=== PATIENT | male | born 1950 | race American Indian/Alaskan Native ===

== ENCOUNTER 2019-10-23 15:05 | Inpatient (IN) | payer MEDICARE, OTHER ==
[~2019-10-23] VITALS: Ht 193 cm; Wt 140.0 kg
--- NOTE | 2019-10-23 15:36 | NUR ---
pt walked back from triage to room 24 in overflow, he was cooperative and calm
[2019-10-23 15:53] LABS: CLARITY,URINE SLIGHTLY CLOUDY (Clear); COLOR,URINE YELLOW (Yellow); GLUCOSE, URINE NEGATIVE (Neg); KETONES,URINE NEGATIVE (Neg); LEUKOCYTE ESTERASE ,URINE NEGATIVE (Neg); NITRITES, URINE NEGATIVE (Neg); OCCULT BLOOD,URINE TRACE-INTACT (Neg); PH,URINE 6.5 (4.8-8.0); PROTEIN,URINE NEGATIVE (Neg); UROBILINOGEN,URINE >=8.0 E.U/dL (0.2-1.0)
[2019-10-23 15:56] LABS: URINE AMPHETAMINE SCREEN NEGATIVE (Neg); URINE BARBITUATE SCREEN NEGATIVE (Neg); URINE BENZODIAZEPINES SCREEN POSITIVE (Neg); URINE CANNABINOID SCREEN NEGATIVE (Neg); URINE COCAINE SCREEN NEGATIVE (Neg); URINE METHADONE SCREEN NEGATIVE (Neg); URINE OPIATE SCREEN NEGATIVE (Neg); URINE PHENCYCLIDINE SCREEN NEGATIVE (Neg)
[2019-10-23 15:58] LABS: UA COLLECTION TYPE CLN CATCH MIDSTREAM
[2019-10-23 15:59] LABS: MUCUS STRANDS MODERATE /LPF (Neg); SQUAMOUS EPITHELIAL CELL,UR MODERATE /LPF (FEW)
[2019-10-23 16:00] LABS: WBC,URINE 0-4 /HPF (0-4)
[2019-10-23 16:01] LABS: BACTERIA,URINE FEW /HPF (Neg)
--- NOTE | 2019-10-23 16:12 | NUR ---
Lab came and cb blood. Pt. to have CT scan. Patient is sitting at his bedside in no distress.
[2019-10-23 16:14] LABS: BASOPHILS # (AUTO) 0.1 X10'3 (0-0.2); BASOPHILS % (AUTO) 0.8 % (0-1); EOSINOPHILS # (AUTO) 0.1 X10'3 (0-0.9); EOSINOPHILS % (AUTO) 0.8 % (0-6); HEMOGLOBIN 12.9 g/dl (14.0-17.9); LYMPHOCYTES # (AUTO) 1.4 X10'3 (1.1-4.8); LYMPHOCYTES % (AUTO) 20.7 % (21-51); MEAN CORPUSCULAR HEMOGLOBIN 30.8 PG (27.0-31.0); MEAN CORPUSCULAR VOLUME 93.4 FL (78-98); MEAN PLATELET VOLUME 8.3 FL (7.4-10.4); MONOCYTES # (AUTO) 0.9 X10'3 (0-0.9); MONOCYTES % (AUTO) 13.1 % (2-12); NEUTROPHILS # (AUTO) 4.4 X10'3 (1.8-7.7); NEUTROPHILS % (AUTO) 64.6 % (42-75); PLATELET COUNT 204 X10'3 (140-440); RED BLOOD COUNT 4.18 X10'6 (4.70-6.10); RED CELL DISTRIBUTION WIDTH 13.6 % (11.5-14.5); WHITE BLOOD COUNT 6.9 X10'3 (4.5-11.0)
--- NOTE | 2019-10-23 16:19 | NUR ---
Pt. ambulated to CT scanner.
--- NOTE | 2019-10-23 16:26 | NUR ---
Patient is back from CT. He wheels onto unit and states "he's ".
[2019-10-23 16:28] LABS: ALANINE AMINOTRANSFERASE 30 U/L (12-78); ALBUMIN 4.1 G/DL (3.4-5.0); ALBUMIN/GLOBULIN RATIO 1.2 (1.1-1.5); ALKALINE PHOSPHATASE 117 IU/L (46-116); ANION GAP 5 (8-16); ASPARTATE AMINO TRANSFERASE 29 U/L (10-37); BILIRUBIN,TOTAL 0.9 MG/DL (0.1-1.0); BLOOD UREA NITROGEN 15 MG/DL (7-18); BUN/CREATININE RATIO 13.9 (5.4-32.0); CALCIUM 8.9 MG/DL (8.5-10.1); CHLORIDE 108 MMOL/L (99-107); CREATININE 1.08 MG/DL (0.60-1.10); GLUCOSE 101 MG/DL (70-104); POTASSIUM 4.1 MMOL/L (3.5-5.1); SODIUM 142 MMOL/L (135-145); TOTAL CARBON DIOXIDE 28.9 MMOL/L (24-32); TOTAL PROTEIN 7.4 G/DL (6.4-8.2); eGFR 67 ML/MIN
[2019-10-23 16:36] LABS: ETHANOL < 0.010 GM/DL (0.0-0.010)
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
--- NOTE | 2019-10-23 17:21 | NUR ---
FAXED PACKET TO [facility]
--- NOTE | 2019-10-23 18:50 | NUR ---
pt is standing at nurses station talking about [place] and his experience. pt is confused and making nonsensical statements.
--- NOTE | 2019-10-23 19:53 | NUR ---
pt is meeting with [facility] clinician now.
--- NOTE | 2019-10-23 21:57 | NUR ---
PER [facility] PT DOES NOT MEET CRITERIA FOR A HOLD AND THE IS SCARED TO TAKE THE PT HOME SHE BELIVES HE WILL BE AGRESSIVE WITH HER. MD AWARE AND ORDER WILL BE PLACED FOR REGISTERED APPRAISER IN THE MORNING. - PT IS NOT CURRENTLY ON A HOLD -
--- NOTE | 2019-10-23 23:31 | NUR ---
PATIENT SLEEPING, ON RIGHT SIDE.
--- NOTE | 2019-10-24 05:27 | NUR ---
PT IS AWAKE - HE IS GIVEN SOME APPLE JUICE AND ADVISED IT WILL STILL BE A COUPLE OF HOURS BEFORE BREAKFAST. HE IS CALM AND COOPERATIVE.
--- NOTE | 2019-10-24 07:31 | NUR ---
Assumed care of patient. Patient sitting in chair in room with eyes closed. Respirations even and no distress noted. Ligths dimmed.
--- NOTE | 2019-10-24 08:40 | NUR ---
Patient given breakfast tray. Patient cooperative and smiling. Patient sitting in room eating breakfast.
--- NOTE | 2019-10-24 08:45 | NUR ---
SPOKE WITH PRITESH FROM AND SHE IS AWARE AND WILL CONTACT TO COME UP WITH DC PLAN.
--- NOTE | 2019-10-24 11:26 | NUR ---
PRITESH FROM [facility] [place]. ALL PAPERWORK HAS BEEN SENT, AWAITING TO SEEN IF HE WILL BE ACCEPTED.
--- NOTE | 2019-10-24 12:34 | NUR ---
PT ATE 50% OF HIS LUNCH. HE STATED HE IS HOPING TO GET OUT OF HERE SOON
[2019-10-24] MEDS ORDERED: SODI56GE9 DT (13:18)
[2019-10-24] MEDS ORDERED: CHOL200016 PO (13:18)
[2019-10-24] MEDS ORDERED: BACL10TA14 PO (13:18)
[2019-10-24] MEDS ORDERED: DABI150C PO (13:18)
[2019-10-24] MEDS ORDERED: HYDR-3686 PO (13:18)
[2019-10-24] MEDS ORDERED: SIMV-42 PO (13:18)
[2019-10-24] MEDS ORDERED: METO25TA6 PO (13:18)
[2019-10-24] MEDS ORDERED: FURO20TA4 PO (13:18)
[2019-10-24] MEDS ORDERED: DOCU-267 PO (13:18)
[2019-10-24] MEDS ORDERED: GABA-530 PO (13:18)
[2019-10-24] MEDS ORDERED: ESCI20TA45 PO (13:18)
[2019-10-24] MEDS ORDERED: ALLO300T2 PO (13:18)
[2019-10-24] MEDS ORDERED: FOLI0.4T14 PO (13:18)
[2019-10-24] MEDS ORDERED: CARB15DR EACHEYE (13:18)
[2019-10-24] MEDS ORDERED: potassium CL 10mEq/100ml bag 100 ML IV PRN ×2 (14:20)
[2019-10-24] MEDS ORDERED: ondansetron/PF 4mg/2ml inj IV PRN (14:20)
[2019-10-24] MEDS ORDERED: magnesium Cl slow-release 64mg tablet PO PRN (14:20)
[2019-10-24] MEDS ORDERED: magnesium 4gm in 100ml NS 100 ML IV PRN (14:20)
[2019-10-24] MEDS ORDERED: potassium Cl 20 mEq SR tablet PO PRN ×2 (14:20)
[2019-10-24] MEDS ORDERED: morphine 2 MG/ML inj. syringe IV PRN (14:20)
[2019-10-24] MEDS ORDERED: magnesium 2GM in 50ml NS 50 ML IV PRN (14:20)
[2019-10-24] MEDS ORDERED: acetaminophen 325mg tablet PO PRN ×2 (14:20)
[2019-10-24] MEDS ORDERED: polyvinyl alcohol ophthalmic drops 15ml bottle EACHEYE PRN (14:30)
[2019-10-24 15:10] LABS: HEMOGLOBIN A1C 6.1 % (4.5-6.2)
--- NOTE | 2019-10-24 15:13 | NUR ---
FOR ANY QUESTIONS CALL DR GREY AT THE [place] [phone]
--- NOTE | 2019-10-24 16:37 | NUR ---
Patient in room ED 16. I have received report from Isa and had the opportunity to ask questions and assume patient care.
[2019-10-24 18:00] VITALS: BP 149/89
--- NOTE | 2019-10-24 18:02 | NUR ---
MRI called, stated patient to heavy (308lbs) for the MRI machine to handle. will notify
--- NOTE | 2019-10-24 18:15 | NUR ---
Problems reprioritized. Patient report given, questions answered & plan of care reviewed with Monica.
--- NOTE | 2019-10-24 18:15 | NUR ---
Patient in room ORTHO 4010. I have received report from Anup DOTY and had the opportunity to ask questions and assume patient care.
[2019-10-24] MEDS: K and/or MAG REPLACEMENT MC SCH (20:00)
[2019-10-24] MEDS ORDERED: heparin, porcine 5000 units/ml vial SQ SCH (20:00)
[2019-10-24] MEDS: atorvastatin 10mg tablet PO SCH (20:34)
[2019-10-24] MEDS: temazepam 15mg capsule PO PRN (20:34)
[2019-10-24] MEDS: metoprolol tartrate 25mg tablet PO SCH (20:35)
[2019-10-24] MEDS: dabigatran 150mg capsule PO SCH (20:35)
[2019-10-24] MEDS: docusate sod 100mg capsule PO SCH (20:35)
[2019-10-24 22:00] VITALS: BP 120/70
[2019-10-25] MEDS: hydrOXYzine 25 MG tablet PO PRN ×2 (00:38→14:43)
[2019-10-25 06:00] VITALS: BP 125/71
--- NOTE | 2019-10-25 06:16 | NUR ---
Problems reprioritized. Patient report given, questions answered & plan of care reviewed with Marlene DOTY.
[2019-10-25 06:23] LABS: BASOPHILS % (AUTO) 0.4 % (0-1); EOSINOPHILS # (AUTO) 0.1 X10'3 (0-0.9); EOSINOPHILS % (AUTO) 2.2 % (0-6); HEMATOCRIT 37.9 % (42.0-52.0); HEMOGLOBIN 12.5 g/dl (14.0-17.9); LYMPHOCYTES # (AUTO) 1.6 X10'3 (1.1-4.8); LYMPHOCYTES % (AUTO) 25.1 % (21-51); MEAN CORPUSCULAR HEMOGLOBIN 31.2 PG (27.0-31.0); MEAN CORPUSCULAR HGB CONC 33.1 g/dL (33.0-36.5); MEAN CORPUSCULAR VOLUME 94.4 FL (78-98); MEAN PLATELET VOLUME 8.2 FL (7.4-10.4); MONOCYTES # (AUTO) 0.7 X10'3 (0-0.9); MONOCYTES % (AUTO) 11.6 % (2-12); NEUTROPHILS # (AUTO) 3.8 X10'3 (1.8-7.7); NEUTROPHILS % (AUTO) 60.7 % (42-75); PLATELET COUNT 210 X10'3 (140-440); RED BLOOD COUNT 4.02 X10'6 (4.70-6.10); RED CELL DISTRIBUTION WIDTH 13.7 % (11.5-14.5); WHITE BLOOD COUNT 6.2 X10'3 (4.5-11.0)
[2019-10-25 06:43] LABS: ALANINE AMINOTRANSFERASE 26 U/L (12-78); ALBUMIN 3.6 G/DL (3.4-5.0); ALBUMIN/GLOBULIN RATIO 1.2 (1.1-1.5); ALKALINE PHOSPHATASE 105 IU/L (46-116); ANION GAP 6 (8-16); ASPARTATE AMINO TRANSFERASE 23 U/L (10-37); BILIRUBIN,TOTAL 0.9 MG/DL (0.1-1.0); BLOOD UREA NITROGEN 20 MG/DL (7-18); BUN/CREATININE RATIO 21.3 (5.4-32.0); CALCIUM 8.9 MG/DL (8.5-10.1); CHLORIDE 107 MMOL/L (99-107); CHOL/HDL RATIO 2.3 (0.00-4.99); CHOLESTEROL 129 MG/DL (0-200); CREATININE 0.94 MG/DL (0.60-1.10); GLUCOSE 103 MG/DL (70-104); HDL CHOLESTEROL 56 MG/DL (35-60); LDL CHOLESTEROL 65 MG/DL (50-100); MAGNESIUM 2.1 MG/DL (1.5-2.4); POTASSIUM 3.7 MMOL/L (3.5-5.1); SODIUM 142 MMOL/L (135-145); TOTAL CARBON DIOXIDE 29.3 MMOL/L (24-32); TOTAL PROTEIN 6.5 G/DL (6.4-8.2); TRIGLYCERIDES 44 MG/DL (20-135); eGFR 79 ML/MIN
[2019-10-25] MEDS: docusate sod 100mg capsule PO SCH ×2 (07:30→21:02)
[2019-10-25] MEDS: furosemide 20MG tablet PO SCH (07:30)
[2019-10-25] MEDS: allopurinol 300 MG tablet PO SCH (07:31)
[2019-10-25] MEDS: dabigatran 150mg capsule PO SCH ×2 (07:31→21:01)
[2019-10-25] MEDS: ESCITALOPRAM OXALATE 5 MG TABLET PO SCH (07:31)
[2019-10-25] MEDS: gabapentin 100mg capsule PO SCH (07:31)
[2019-10-25] MEDS: metoprolol tartrate 25mg tablet PO SCH ×2 (07:32→21:02)
[2019-10-25] MEDS: K and/or MAG REPLACEMENT MC SCH ×2 (08:00→20:00)
--- NOTE | 2019-10-25 08:49 | NUR ---
PAGER ID: [phone] MESSAGE: [id number] Milo Lantigua- MRI states patient is too big for scan. Marlene [phone]
--- NOTE | 2019-10-25 09:50 | NUR ---
Spoke to , Derrick, states shes does not want patient home. states [facility] is working on placement to [facility].
[2019-10-25 09:54] VITALS: BP 136/79
[2019-10-25] MEDS ORDERED: LORazepam 0.5 MG tablet PO PRN ×2 (11:25→13:15)
[2019-10-25] MEDS ORDERED: LORazepam 2 mg/ml vial IV PRN (11:25)
--- NOTE | 2019-10-25 15:00 | NUR ---
Patient left unit, went down to 3rd floor. Charge nurse followed him down and brought him back out.
--- NOTE | 2019-10-25 15:24 | NUR ---
Patient increased restlessness, PRN atarax and ativan given. Patient continues to wonder.
--- NOTE | 2019-10-25 15:24 | NUR ---
Juan Diego DELGADO, here to psych evaluate patient.
--- NOTE | 2019-10-25 15:30 | NUR ---
delivery crew worker and Juan Diego DELGADO spoke over the phone, socially responsible investment adviser [facility].
[2019-10-25] MEDS ORDERED: clonazePAM 1mg tablet PO ONE (15:35)
[2019-10-25] MEDS: LORazepam 2 mg/ml vial IV PRN (15:49)
[2019-10-25 18:00] VITALS: BP 149/78
--- NOTE | 2019-10-25 18:10 | NUR ---
Patient in room ORTHO 4010. I have received report from Marlene DOTY and had the opportunity to ask questions and assume patient care.
--- NOTE | 2019-10-25 18:19 | NUR ---
Problems reprioritized. Patient report given, questions answered & plan of care reviewed with Georgette DOTY.
--- NOTE | 2019-10-25 19:02 | NUR ---
PCT got the pt in the shower. PCT came to the hallways to ask for something and then we heard a fall in the shower. Checked on pt. He was sitting on the floor with his legs out of the shower. pt stated he hit his head and R elbow. mild redness noted to the right elbow. when asked if he was in pain he stated "no. men like me don't feel pain." then proceeded to say he was dizzy. Upon assessment no blood noted. vital signs taken and pt returned to bed. will continue to monitor.
[2019-10-25 19:13] VITALS: BP 136/98
--- NOTE | 2019-10-25 19:13 | NUR ---
called Dr. Olson concerning his fall in the shower. MD aware of vital sign prior and after the fall. CT scan ordered. will continue to monitor.
[2019-10-25] MEDS: clonazePAM 1mg tablet PO SCH (21:02)
[2019-10-25] MEDS: atorvastatin 10mg tablet PO SCH (21:02)
[2019-10-25 22:00] VITALS: BP 136/69
--- NOTE | 2019-10-25 23:55 | NUR ---
ASSUMED CARE OF PATIENT WITH REPORT FROM GIOVANA DOTY. SITTER IN ROOM AND PATIENT RESTING QUIETLY WITH EYES CLOSED AT THIS TIME.
[2019-10-26 05:46] LABS: BASOPHILS # (AUTO) 0.1 X10'3 (0-0.2); BASOPHILS % (AUTO) 0.9 % (0-1); EOSINOPHILS # (AUTO) 0.1 X10'3 (0-0.9); EOSINOPHILS % (AUTO) 1.6 % (0-6); HEMATOCRIT 37.5 % (42.0-52.0); HEMOGLOBIN 12.3 g/dl (14.0-17.9); LYMPHOCYTES # (AUTO) 1.5 X10'3 (1.1-4.8); LYMPHOCYTES % (AUTO) 24.9 % (21-51); MEAN CORPUSCULAR HEMOGLOBIN 30.6 PG (27.0-31.0); MEAN CORPUSCULAR HGB CONC 32.6 g/dL (33.0-36.5); MEAN CORPUSCULAR VOLUME 93.8 FL (78-98); MEAN PLATELET VOLUME 8.4 FL (7.4-10.4); MONOCYTES # (AUTO) 0.9 X10'3 (0-0.9); MONOCYTES % (AUTO) 14.4 % (2-12); NEUTROPHILS # (AUTO) 3.6 X10'3 (1.8-7.7); NEUTROPHILS % (AUTO) 58.2 % (42-75); PLATELET COUNT 205 X10'3 (140-440); RED CELL DISTRIBUTION WIDTH 13.5 % (11.5-14.5); WHITE BLOOD COUNT 6.1 X10'3 (4.5-11.0)
[2019-10-26 05:59] LABS: ALANINE AMINOTRANSFERASE 22 U/L (12-78); ALBUMIN 3.5 G/DL (3.4-5.0); ALBUMIN/GLOBULIN RATIO 1.3 (1.1-1.5); ALKALINE PHOSPHATASE 96 IU/L (46-116); ANION GAP 5 (8-16); ASPARTATE AMINO TRANSFERASE 27 U/L (10-37); BILIRUBIN,TOTAL 1.1 MG/DL (0.1-1.0); BLOOD UREA NITROGEN 15 MG/DL (7-18); BUN/CREATININE RATIO 15.8 (5.4-32.0); CALCIUM 8.6 MG/DL (8.5-10.1); CHLORIDE 108 MMOL/L (99-107); CREATININE 0.95 MG/DL (0.60-1.10); GLUCOSE 90 MG/DL (70-104); MAGNESIUM 1.9 MG/DL (1.5-2.4); POTASSIUM 3.5 MMOL/L (3.5-5.1); SODIUM 143 MMOL/L (135-145); TOTAL CARBON DIOXIDE 29.8 MMOL/L (24-32); TOTAL PROTEIN 6.3 G/DL (6.4-8.2); eGFR 78 ML/MIN
[2019-10-26 06:00] VITALS: BP 138/83
--- NOTE | 2019-10-26 06:35 | NUR ---
Problems reprioritized. Patient report given, questions answered & plan of care reviewed with RHIANNON DOTY.
[2019-10-26] MEDS: gabapentin 100mg capsule PO SCH (07:23)
[2019-10-26] MEDS: allopurinol 300 MG tablet PO SCH (07:23)
[2019-10-26] MEDS: clonazePAM 1mg tablet PO SCH ×2 (07:23→19:35)
[2019-10-26] MEDS: docusate sod 100mg capsule PO SCH ×2 (07:23→19:35)
[2019-10-26] MEDS: furosemide 20MG tablet PO SCH (07:23)
[2019-10-26] MEDS: ESCITALOPRAM OXALATE 5 MG TABLET PO SCH (07:24)
[2019-10-26] MEDS: metoprolol tartrate 25mg tablet PO SCH ×2 (07:25→19:35)
[2019-10-26] MEDS: dabigatran 150mg capsule PO SCH ×2 (07:34→19:35)
[2019-10-26] MEDS: K and/or MAG REPLACEMENT MC SCH ×2 (08:00→19:37)
[2019-10-26 10:00] VITALS: BP 121/68
--- NOTE | 2019-10-26 11:50 | NUR ---
Problems reprioritized. Patient report given, questions answered & plan of care reviewed with RHIANNON DOTY.
--- NOTE | 2019-10-26 12:08 | NUR ---
Problems reprioritized. Patient report given, questions answered & plan of care reviewed with Lory DOTY.
[2019-10-26 18:00] VITALS: BP 134/74
--- NOTE | 2019-10-26 18:13 | NUR ---
Problems reprioritized. Patient report given, questions answered & plan of care reviewed with LORIE DOTY AND ALEX DOTY.
--- NOTE | 2019-10-26 18:20 | NUR ---
Patient in room ORTHO 4010. I have received report from Lory DOTY and had the opportunity to ask questions and assume patient care.
[2019-10-26] MEDS: HYDROcodone/acetaminophen 5mg/325mg tablet PO PRN (19:36)
[2019-10-26] MEDS: atorvastatin 10mg tablet PO SCH (20:03)
[2019-10-27] MEDS: HYDROcodone/acetaminophen 5mg/325mg tablet PO PRN ×3 (03:11→17:17)
[2019-10-27 05:16] LABS: BASOPHILS % (AUTO) 0.4 % (0-1); EOSINOPHILS # (AUTO) 0.1 X10'3 (0-0.9); EOSINOPHILS % (AUTO) 2.3 % (0-6); HEMATOCRIT 38.9 % (42.0-52.0); HEMOGLOBIN 12.6 g/dl (14.0-17.9); LYMPHOCYTES # (AUTO) 1.5 X10'3 (1.1-4.8); LYMPHOCYTES % (AUTO) 26.7 % (21-51); MEAN CORPUSCULAR HEMOGLOBIN 30.6 PG (27.0-31.0); MEAN CORPUSCULAR HGB CONC 32.5 g/dL (33.0-36.5); MEAN CORPUSCULAR VOLUME 94.3 FL (78-98); MEAN PLATELET VOLUME 8.3 FL (7.4-10.4); MONOCYTES # (AUTO) 0.7 X10'3 (0-0.9); MONOCYTES % (AUTO) 13.3 % (2-12); NEUTROPHILS # (AUTO) 3.2 X10'3 (1.8-7.7); NEUTROPHILS % (AUTO) 57.3 % (42-75); PLATELET COUNT 214 X10'3 (140-440); RED BLOOD COUNT 4.12 X10'6 (4.70-6.10); RED CELL DISTRIBUTION WIDTH 13.7 % (11.5-14.5); WHITE BLOOD COUNT 5.6 X10'3 (4.5-11.0)
[2019-10-27 05:17] LABS: ALANINE AMINOTRANSFERASE 24 U/L (12-78); ALBUMIN 3.5 G/DL (3.4-5.0); ALBUMIN/GLOBULIN RATIO 1.2 (1.1-1.5); ALKALINE PHOSPHATASE 99 IU/L (46-116); ANION GAP 7 (8-16); ASPARTATE AMINO TRANSFERASE 25 U/L (10-37); BILIRUBIN,TOTAL 0.9 MG/DL (0.1-1.0); BLOOD UREA NITROGEN 13 MG/DL (7-18); BUN/CREATININE RATIO 13.7 (5.4-32.0); CALCIUM 8.7 MG/DL (8.5-10.1); CHLORIDE 108 MMOL/L (99-107); CREATININE 0.95 MG/DL (0.60-1.10); GLUCOSE 92 MG/DL (70-104); POTASSIUM 3.6 MMOL/L (3.5-5.1); SODIUM 143 MMOL/L (135-145); TOTAL CARBON DIOXIDE 28.5 MMOL/L (24-32); TOTAL PROTEIN 6.4 G/DL (6.4-8.2); eGFR 78 ML/MIN
[2019-10-27 06:00] VITALS: BP 124/70
--- NOTE | 2019-10-27 06:03 | NUR ---
Patient in room ORTHO 4010. I have received report from ALEX DOTY AND LORIE RN and had the opportunity to ask questions and assume patient care.
--- NOTE | 2019-10-27 06:06 | NUR ---
Problems reprioritized. Patient report given, questions answered & plan of care reviewed with Lory DOTY.
[2019-10-27] MEDS: K and/or MAG REPLACEMENT MC SCH ×2 (08:00→18:23)
[2019-10-27] MEDS: ESCITALOPRAM OXALATE 5 MG TABLET PO SCH (08:08)
[2019-10-27] MEDS: docusate sod 100mg capsule PO SCH ×2 (08:08→19:56)
[2019-10-27] MEDS: allopurinol 300 MG tablet PO SCH (08:08)
[2019-10-27] MEDS: gabapentin 100mg capsule PO SCH (08:08)
[2019-10-27] MEDS: clonazePAM 1mg tablet PO SCH ×2 (08:08→19:56)
[2019-10-27] MEDS: metoprolol tartrate 25mg tablet PO SCH ×2 (08:10→19:57)
[2019-10-27] MEDS: furosemide 20MG tablet PO SCH (08:11)
[2019-10-27] MEDS: dabigatran 150mg capsule PO SCH ×2 (08:15→19:56)
[2019-10-27 10:00] VITALS: BP 106/46
--- NOTE | 2019-10-27 11:04 | NUR ---
PAGER ID: [phone] MESSAGE: [id number] RE: GIL [id number] FORGOT TO ASK IF WE COULD DC THE SITTER PLEASE?
[2019-10-27 18:00] VITALS: BP 128/81
--- NOTE | 2019-10-27 18:00 | NUR ---
Problems reprioritized. Patient report given, questions answered & plan of care reviewed with JESSICA DOTY.
--- NOTE | 2019-10-27 18:17 | NUR ---
Report rec'd from teri Henley.
[2019-10-27] MEDS: atorvastatin 10mg tablet PO SCH (19:56)
[2019-10-27] MEDS: temazepam 15mg capsule PO PRN ×2 (21:37→23:29)
[2019-10-27 22:00] VITALS: BP 123/72
[2019-10-28 06:00] VITALS: BP 121/59
--- NOTE | 2019-10-28 06:14 | NUR ---
Report given to teri Maguire.
[2019-10-28 06:39] LABS: BASOPHILS % (AUTO) 0.6 % (0-1); EOSINOPHILS # (AUTO) 0.2 X10'3 (0-0.9); EOSINOPHILS % (AUTO) 2.5 % (0-6); HEMOGLOBIN 14.2 g/dl (14.0-17.9); LYMPHOCYTES # (AUTO) 2.5 X10'3 (1.1-4.8); LYMPHOCYTES % (AUTO) 31.8 % (21-51); MEAN CORPUSCULAR VOLUME 93.9 FL (78-98); MEAN PLATELET VOLUME 8.5 FL (7.4-10.4); MONOCYTES # (AUTO) 0.9 X10'3 (0-0.9); NEUTROPHILS # (AUTO) 4.3 X10'3 (1.8-7.7); NEUTROPHILS % (AUTO) 54.1 % (42-75); PLATELET COUNT 242 X10'3 (140-440); RED BLOOD COUNT 4.58 X10'6 (4.70-6.10); RED CELL DISTRIBUTION WIDTH 13.6 % (11.5-14.5); WHITE BLOOD COUNT 7.9 X10'3 (4.5-11.0)
[2019-10-28 06:50] LABS: ALANINE AMINOTRANSFERASE 26 U/L (12-78); ALBUMIN 4.2 G/DL (3.4-5.0); ALBUMIN/GLOBULIN RATIO 1.3 (1.1-1.5); ALKALINE PHOSPHATASE 117 IU/L (46-116); ANION GAP 7 (8-16); ASPARTATE AMINO TRANSFERASE 27 U/L (10-37); BLOOD UREA NITROGEN 14 MG/DL (7-18); BUN/CREATININE RATIO 13.2 (5.4-32.0); CALCIUM 9.2 MG/DL (8.5-10.1); CHLORIDE 105 MMOL/L (99-107); CREATININE 1.06 MG/DL (0.60-1.10); GLUCOSE 92 MG/DL (70-104); MAGNESIUM 2.2 MG/DL (1.5-2.4); POTASSIUM 3.7 MMOL/L (3.5-5.1); SODIUM 142 MMOL/L (135-145); TOTAL CARBON DIOXIDE 30.1 MMOL/L (24-32); TOTAL PROTEIN 7.5 G/DL (6.4-8.2); eGFR 69 ML/MIN
[2019-10-28] MEDS: K and/or MAG REPLACEMENT MC SCH ×2 (08:00→19:43)
[2019-10-28] MEDS: docusate sod 100mg capsule PO SCH ×2 (08:29→20:16)
[2019-10-28] MEDS: furosemide 20MG tablet PO SCH (08:29)
[2019-10-28] MEDS: clonazePAM 1mg tablet PO SCH ×2 (08:29→20:17)
[2019-10-28] MEDS: ESCITALOPRAM OXALATE 5 MG TABLET PO SCH (08:30)
[2019-10-28] MEDS: allopurinol 300 MG tablet PO SCH (08:31)
[2019-10-28] MEDS: gabapentin 100mg capsule PO SCH (08:31)
[2019-10-28] MEDS: metoprolol tartrate 25mg tablet PO SCH ×2 (08:31→20:17)
[2019-10-28] MEDS: dabigatran 150mg capsule PO SCH ×2 (08:31→20:16)
[2019-10-28 10:00] VITALS: BP 97/56
--- NOTE | 2019-10-28 11:51 | NUR ---
Initial: Pt admit DX acute on chronic depression and age-related memory loss hx PTSD. Does not qualify for BHU per MD note. Pt currently AOx3 and does not appear confused/encephalopathic per MD. Pt initially refused 3 meals on admit otherwise 75-100% avg heart healthy meals; double protein BIDLD added given current wt to more appropriately meet needs. dietary notified. [facility] 10/25. No nutrition concerns at this time. Will continue to monitor. Rec: 1. continue heart healthy diet; double proteins BIDLD 2. bowel care as needed 3. wt per rx Addendum: 10/28/19 at [address] Amended: Links added.
[2019-10-28] MEDS: LORazepam 2 mg/ml vial IV PRN (15:21)
--- NOTE | 2019-10-28 15:57 | NUR ---
Patient in room ORTHO 4010. I have received report from Ting DOTY and had the opportunity to ask questions and assume patient care.
[2019-10-28 18:00] VITALS: BP 144/80
--- NOTE | 2019-10-28 18:08 | NUR ---
Report to Karey DOTY
--- NOTE | 2019-10-28 18:10 | NUR ---
Received patient report from SOREN Soto. Assumed patient care.
[2019-10-28] MEDS: HYDROcodone/acetaminophen 5mg/325mg tablet PO PRN (19:20)
[2019-10-28] MEDS: temazepam 15mg capsule PO PRN (20:16)
[2019-10-28] MEDS: atorvastatin 10mg tablet PO SCH (20:17)
[2019-10-28 21:58] VITALS: BP 126/76
[2019-10-29 05:00] VITALS: BP 109/62
[2019-10-29 06:00] LABS: BASOPHILS # (AUTO) 0.1 X10'3 (0-0.2); EOSINOPHILS # (AUTO) 0.1 X10'3 (0-0.9); EOSINOPHILS % (AUTO) 2.2 % (0-6); HEMATOCRIT 39.4 % (42.0-52.0); LYMPHOCYTES # (AUTO) 1.4 X10'3 (1.1-4.8); LYMPHOCYTES % (AUTO) 23.7 % (21-51); MEAN CORPUSCULAR HEMOGLOBIN 31.3 PG (27.0-31.0); MEAN CORPUSCULAR VOLUME 94.9 FL (78-98); MEAN PLATELET VOLUME 8.5 FL (7.4-10.4); MONOCYTES # (AUTO) 0.8 X10'3 (0-0.9); MONOCYTES % (AUTO) 12.4 % (2-12); NEUTROPHILS # (AUTO) 3.7 X10'3 (1.8-7.7); NEUTROPHILS % (AUTO) 60.7 % (42-75); PLATELET COUNT 215 X10'3 (140-440); RED BLOOD COUNT 4.16 X10'6 (4.70-6.10); RED CELL DISTRIBUTION WIDTH 13.5 % (11.5-14.5); WHITE BLOOD COUNT 6.1 X10'3 (4.5-11.0)
--- NOTE | 2019-10-29 06:08 | NUR ---
Patient report given, questions answered and plan of care reviewed with SOREN Galvez.
[2019-10-29 06:21] LABS: ALANINE AMINOTRANSFERASE 23 U/L (12-78); ALBUMIN 3.9 G/DL (3.4-5.0); ALBUMIN/GLOBULIN RATIO 1.3 (1.1-1.5); ALKALINE PHOSPHATASE 107 IU/L (46-116); ANION GAP 4 (8-16); ASPARTATE AMINO TRANSFERASE 22 U/L (10-37); BILIRUBIN,TOTAL 1.1 MG/DL (0.1-1.0); BLOOD UREA NITROGEN 16 MG/DL (7-18); BUN/CREATININE RATIO 15.4 (5.4-32.0); CHLORIDE 106 MMOL/L (99-107); CREATININE 1.04 MG/DL (0.60-1.10); GLUCOSE 91 MG/DL (70-104); MAGNESIUM 2.2 MG/DL (1.5-2.4); POTASSIUM 3.8 MMOL/L (3.5-5.1); SODIUM 140 MMOL/L (135-145); TOTAL CARBON DIOXIDE 29.6 MMOL/L (24-32); eGFR 70 ML/MIN
--- NOTE | 2019-10-29 06:53 | NUR ---
Patient in room ORTHO 4010. I have received report from Karey DOTY and had the opportunity to ask questions and assume patient care.
[2019-10-29] MEDS: K and/or MAG REPLACEMENT MC SCH (08:00)
[2019-10-29] MEDS: allopurinol 300 MG tablet PO SCH (08:24)
[2019-10-29] MEDS: dabigatran 150mg capsule PO SCH (08:24)
[2019-10-29] MEDS: gabapentin 100mg capsule PO SCH (08:24)
[2019-10-29] MEDS: furosemide 20MG tablet PO SCH (08:24)
[2019-10-29] MEDS: docusate sod 100mg capsule PO SCH (08:24)
[2019-10-29] MEDS: ESCITALOPRAM OXALATE 5 MG TABLET PO SCH (08:25)
[2019-10-29] MEDS: clonazePAM 1mg tablet PO SCH ×2 (08:25→16:00)
[2019-10-29] MEDS: metoprolol tartrate 25mg tablet PO SCH (08:26)
--- NOTE | 2019-10-29 09:15 | NUR ---
Earlier patient was found in lobby looking for his . Escorted back to 4th floor. Encouraged patient to lay down and take a nap as he was awake most of the night. He agreed that would be nice. Green shirt was obtained and patient put it on. He was restless in bed, offered ativan to help relax for sleep. Patient said thank you for helping him. He was observed up to bathroom and removed his jeans before getting back in bed. Appears to be sleeping, resp even & unlabored.
[2019-10-29] MEDS: LORazepam 2 mg/ml vial IV PRN (09:35)
--- NOTE | 2019-10-29 10:00 | NUR ---
Patient up in room, impulsive and unsteady. This RN sat in room talking with patient to keep him calm and safe from falling.
[2019-10-29] MEDS ORDERED: CLON1TAB12 PO (15:10)
== END 2019-10-29 15:45 | disposition home or self-care (01) | DRG 71 ==
LOC: ER 15:05 → ED HOLD 10-24 14:19 → EDBEDREQ 10-24 14:50 → EDBEDREQSVC 10-24 15:32 → ORTHO 4S 10-24 17:05
PROVIDERS: ADMIT Internal Medicine; ATTEND Internal Medicine
DX: G93.40 Encephalopathy, unspecified (principal); F01.51 Vascular dementia, unspecified severity, with behavioral disturbance; I48.20 Chronic atrial fibrillation, unspecified; F32.9 Major depressive disorder, single episode, unspecified; E78.5 Hyperlipidemia, unspecified; F43.10 Post-traumatic stress disorder, unspecified; E78.00 Pure hypercholesterolemia, unspecified; K21.9 Gastro-esophageal reflux disease without esophagitis; I25.10 Atherosclerotic heart disease of native coronary artery without angina pectoris; M1A.9XX0 Chronic gout, unspecified, without tophus (tophi); Z79.01 Long term (current) use of anticoagulants; Z79.899 Other long term (current) drug therapy; Z82.49 Family history of ischemic heart disease and other diseases of the circulatory system; Z83.3 Family history of diabetes mellitus
CPT/HCPCS: 36415; 70450; 80053; 80061; 80305; 80320; 81001; 83036; 83605; 83735; 84443; 85025; 87040; 87081; 97116; 97161; 99285; G0378; J2060; Z7610

== ENCOUNTER 2022-05-02 05:46 | Emergency (ER) | payer MEDICARE, OTHER ==
[~2022-05-02] VITALS: Ht 193 cm; Wt 104.5 kg
[~2022-05-02 05:46] MED LIST: ALLO300T2 PO; ASPI-529 PO; CLON0.5T4 PO; DABI150C PO; DOCU-262 PO; ESCI20TA39 PO; FURO20TA4 PO; LOP25T PO; METF-1203 PO; OXYC-658 PO; QUET25TA36 PO
[2022-05-02 05:59] VITALS: BP 120/84
--- NOTE | 2022-05-02 06:07 | NUR ---
HX RECALLED PT POOR HISTORIAN
--- NOTE | 2022-05-02 06:34 | NUR ---
Patient's blood sugar was 97
[2022-05-02 07:00] LABS: CLARITY,URINE CLEAR (Clear); COLOR,URINE YELLOW (Yellow); GLUCOSE, URINE NEGATIVE (Neg); KETONES,URINE NEGATIVE (Neg); LEUKOCYTE ESTERASE ,URINE NEGATIVE (Neg); NITRITES, URINE NEGATIVE (Neg); OCCULT BLOOD,URINE NEGATIVE (Neg); PH,URINE 5.5 (4.8-8.0); PROTEIN,URINE NEGATIVE (Neg); UROBILINOGEN,URINE 0.2 E.U/dL (0.2-1.0)
[2022-05-02 07:05] LABS: UA COLLECTION TYPE CLN CATCH MIDSTREAM
[2022-05-02 07:29] LABS: URINE AMPHETAMINE SCREEN NEGATIVE (Neg); URINE BARBITUATE SCREEN POSITIVE (Neg); URINE BENZODIAZEPINES SCREEN POSITIVE (Neg); URINE CANNABINOID SCREEN NEGATIVE (Neg); URINE COCAINE SCREEN NEGATIVE (Neg); URINE METHADONE SCREEN NEGATIVE (Neg); URINE OPIATE SCREEN NEGATIVE (Neg); URINE PHENCYCLIDINE SCREEN NEGATIVE (Neg)
[2022-05-02 07:31] LABS: BASOPHILS # (AUTO) 0.1 X10'3 (0-0.2); BASOPHILS % (AUTO) 0.7 % (0-1); EOSINOPHILS # (AUTO) 0.1 X10'3 (0-0.9); EOSINOPHILS % (AUTO) 1.8 % (0-6); HEMATOCRIT 33.7 % (42.0-52.0); HEMOGLOBIN 10.9 g/dl (14.0-17.9); LYMPHOCYTES # (AUTO) 0.9 X10'3 (1.1-4.8); LYMPHOCYTES % (AUTO) 13.6 % (21-51); MEAN CORPUSCULAR HEMOGLOBIN 27.1 PG (27.0-31.0); MEAN CORPUSCULAR HGB CONC 32.3 g/dL (33.0-36.5); MEAN CORPUSCULAR VOLUME 84.1 FL (78-98); MEAN PLATELET VOLUME 7.6 FL (7.4-10.4); MONOCYTES # (AUTO) 0.6 X10'3 (0-0.9); MONOCYTES % (AUTO) 8.1 % (2-12); NEUTROPHILS # (AUTO) 5.3 X10'3 (1.8-7.7); NEUTROPHILS % (AUTO) 75.8 % (42-75); PLATELET COUNT 238 X10'3 (140-440); RED BLOOD COUNT 4.01 X10'6 (4.70-6.10); RED CELL DISTRIBUTION WIDTH 16.6 % (11.5-14.5)
[2022-05-02 07:39] LABS: ALBUMIN/GLOBULIN RATIO 1.3 (1.1-1.5); ANION GAP 8 (8-16); ASPARTATE AMINO TRANSFERASE 30 U/L (10-37); BILIRUBIN,TOTAL 0.5 MG/DL (0.1-1.0); BLOOD UREA NITROGEN 23 MG/DL (7-18); BUN/CREATININE RATIO 18.4 (5.4-32.0); CALCIUM 9.2 MG/DL (8.5-10.1); CHLORIDE 106 MMOL/L (99-107); CREATININE 1.25 MG/DL (0.60-1.10); GLUCOSE 97 MG/DL (70-104); POTASSIUM 4.2 MMOL/L (3.5-5.1); SODIUM 140 MMOL/L (135-145); TOTAL CARBON DIOXIDE 25.8 MMOL/L (24-32); TOTAL PROTEIN 7.2 G/DL (6.4-8.2); eGFR 56 ML/MIN
[2022-05-02 07:40] LABS: ALANINE AMINOTRANSFERASE 23 U/L (12-78); ALKALINE PHOSPHATASE 122 IU/L (46-116)
[2022-05-02 07:48] LABS: ETHANOL < 0.010 GM/DL (0.0-0.010)
== END 2022-05-02 11:30 | disposition home or self-care (01) ==
LOC: ER 05:51
DX: R45.1 Restlessness and agitation (principal); G62.9 Polyneuropathy, unspecified; Z73.6 Limitation of activities due to disability; E78.00 Pure hypercholesterolemia, unspecified; K21.9 Gastro-esophageal reflux disease without esophagitis; I48.91 Unspecified atrial fibrillation; F32.9 Major depressive disorder, single episode, unspecified; Z88.1 Allergy status to other antibiotic agents; Z79.01 Long term (current) use of anticoagulants
CPT/HCPCS: 36415; 80053; 80305; 80320; 81003; 82948; 84443; 85025; 93005; 99284

== ENCOUNTER 2022-11-01 17:19 | Outpatient (CLI) | payer MEDICARE ==
[2022-11-01 18:24] LABS: CLARITY,URINE CLEAR (Clear); COLOR,URINE YELLOW (Yellow); GLUCOSE, URINE NEGATIVE (Neg); KETONES,URINE NEGATIVE (Neg); LEUKOCYTE ESTERASE ,URINE NEGATIVE (Neg); NITRITES, URINE NEGATIVE (Neg); OCCULT BLOOD,URINE NEGATIVE (Neg); PROTEIN,URINE NEGATIVE (Neg)
[2022-11-01 18:29] LABS: UA COLLECTION TYPE NON-SPECIFIED
== END 2022-11-01 23:59 | disposition home or self-care (01) ==
LOC: LAB SPEC 17:19
PROVIDERS: ATTEND Internal Medicine
DX: R73.03 Prediabetes (principal); G62.9 Polyneuropathy, unspecified
CPT/HCPCS: 81003

== ENCOUNTER 2025-06-20 11:49 | Inpatient (IN) | payer OTHER, MEDICARE ==
[~2025-06-20] VITALS: Ht 182.9 cm; Wt 126.0 kg
--- NOTE | 2025-06-20 12:09 | ELECTROCARDIOGRAPH REPORT ---
[facility] Test Date: 2025-06-20 Test Time: 12:07:30 Pat Name: CLAIRE CORDERO Department: [facility] Patient ID: [facility]-[id number] Room: [place] [address] Gender: M Content Creation Manager: : [id number] Requested By: FANI UNGER Order Number: [id number] Reading MD: Dr. BERNARDINO Hinkle Measurements Intervals Cyril Rate: 78 P: 0 AZ: 0 QRS: -38 QRSD: 116 T: 31 QT: 468 QTc: 534 Interpretive Statements Atrial fibrillation Incomplete RBBB and LAFB Low voltage, extremity and precordial leads Baseline wander in lead(s) I,II,aVR,V2 Electronically Signed On 06-21-2025 19:22:[address] BERNARDINO Hinkle Please click the below link to view image of tracing.
--- NOTE | 2025-06-20 12:39 | RADIOLOGY REPORT ---
EXAM: DI CHEST,SINGLE VIEW HISTORY: CP COMPARISON: None TECHNIQUE: Portable upright AP views of the chest were performed. FINDINGS: There are irregular opacities in the mid to lower lungs. No pneumothorax. The heart is enlarged. There are postoperative changes of ACDF, not fully imaged here. The right clavicle is surgically absent. There may be postoperative changes of left distal clavicle resection versus appearance due to old distal clavicle fracture. IMPRESSION: 1. Cardiomegaly with irregular opacities in the mid to lower lungs which may be due to CHF, Scarring, or mild pneumonia. Comparison with previous chest imaging would be helpful to make this distinction. 2. Postoperative changes of ACDF and right clavicle resection.
[2025-06-20 12:49] LABS: MEAN PLATELET VOLUME 8.3 FL (7.4-10.4); RED CELL DISTRIBUTION WIDTH 13.5 % (11.5-14.5)
--- NOTE | 2025-06-20 13:07 | Physician Documentation ---
Addendum CHIEF COMPLAINT/HPI: The patient is a 75-year-old male who lives in [place] with his and was brought in by ambulance after his caregiver found him to be reportedly responsive only to painful stimuli. He is prescribed oxycodone. By the time he arrived in the emergency department he was alert but he also complains of some diffuse abdominal pain and distention. It is not clear when he may have had his last bowel movement. REVIEW OF SYSTEMS: Constitutional: Denies chills, fatigue, fever, weight gain or weight loss. HEENT: Denies hearing loss, sinus pressure or visual changes. Respiratory: Denies cough, shortness of breath or wheezing. Cardiovascular: Denies chest pain, pain while walking (claudication), edema or palpitations. Gastrointestinal: Abdominal pain, denies nausea and vomiting Genitourinary: Denies painful urination (dysuria), excessive amount of urine (polyuria) or urinary frequency. Metabolic/Endocrine: Denies cold intolerance, heat intolerance, excessive thirst (polydipsia) or excessive hunger (polyphagia). Neurological: Denies dizziness, extremity numbness, extremity weakness, headaches, seizures or tremors. Psychiatric: Denies anxiety or depression. Integumentary: Denies breast discharge, breast lump, hives, mole change(s), rash or skin lesion. Musculoskeletal: Denies back pain, joint pain, joint swelling or neck pain. Hematologic: Denies easily bleeding, easily bruises, lymphedema or issues with blood clots. Immunologic: Denies food allergies or seasonal allergies. PHYSICAL EXAMINATION: Vitals and nursing note reviewed. Constitutional: General: Patient is awake, alert, oriented x 4 in no acute distress and well appearing. Speech is clear and lucid. Appearance: Normal appearance. Patient is not ill-appearing, toxic-appearing or diaphoretic. HENT: Head: Normocephalic and atraumatic. Mouth: Mucous membranes are moist. Pharynx: Oropharynx is clear. Eyes: General: No scleral icterus. Extraocular Movements: Extraocular movements intact. Pupils: Pupils are equal, round, and reactive to light. Neck: Supple, no Kernig or Brudzinski sign. Cardiovascular: Rate and Rhythm: Normal rate and regular rhythm. Heart sounds: No murmur heard. Pulmonary: Effort: No respiratory distress. Breath sounds: No wheezing, rhonchi or rales. Abdominal: General: Distended and tympanitic Palpations: There is no fluid wave, hepatomegaly or mass. Tenderness: Mild diffuse tenderness Musculoskeletal: General: No swelling or deformity. Skin: Coloration: Skin is not jaundiced. Findings: No erythema or rash. Neurological: Mental Status: Patient is alert. MEDICAL DECISION MAKING: EKG medically necessary in the evaluation of abdominal pain and interpreted by me at the time of patient evaluation. Rhythm is atrial fibrillation with a rate of 78, incomplete right bundle branch block and left anterior fascicular block. Impression: Abnormal EKG. Chest x-ray: IMPRESSION: 1. Cardiomegaly with irregular opacities in the mid to lower lungs which may be due to CHF, Scarring, or mild pneumonia. Comparison with previous chest imaging would be helpful to make this distinction. 2. Postoperative changes of ACDF and right clavicle resection. This 75-year-old man reportedly was responsive only to pain when his caregiver visited him earlier. She called 911 and by the time the patient got here he was much more responsive. He is complaining of some generalized abdominal pain and his caregiver said that he does develop this along with distention when he stops taking his Lasix. His troponin is found to be over 1,300. I see no prior troponins in his record. Pradaxa is listed as one of his medications but the patient reportedly does not take his medications, as prescribed, according to his caregiver. I am giving him a loading dose of aspirin but will not start him on a heparin drip at this time. He will require admission. Departure Disposition: ADMITTED INPATIENT Admitted to Inpatient Unit: to hospitalist Impression: Primary Impression: NSTEMI (non-ST elevated myocardial infarction) Condition: FANI Ruiz MD Jun 20, 2025 13:07
[2025-06-20 13:16] LABS: CREATININE 1.02 MG/DL (0.60-1.10); PRO BRAIN NATRIURETIC PEPTIDE 1540 PG/ML (0-450); TOTAL CARBON DIOXIDE 31.4 MMOL/L (24-32); eCRCL 67 ML/MIN; eGFR 71 ML/MIN
[2025-06-20] MEDS ORDERED: iohexol 300mg/ml 100ml inj. ONE (13:34)
[2025-06-20 14:10] LABS: CREATININE 0.95 MG/DL (0.60-1.10); TOTAL CARBON DIOXIDE 30.3 MMOL/L (24-32); eCRCL 71 ML/MIN; eGFR 77 ML/MIN
[2025-06-20 14:17] LABS: ETHANOL < 10 MG/DL (<10)
[2025-06-20] MEDS ORDERED: magnesium sulf-water 4G/100mL 100 ML IV PRN (15:00)
[2025-06-20] MEDS ORDERED: potassium Cl 20 mEq SR tablet PO PRN ×2 (15:00)
[2025-06-20] MEDS ORDERED: potassium Cl 40MEQ/1/2NS 520ml 520 ML IV PRN (15:00)
[2025-06-20] MEDS ORDERED: morphine 4 MG/ML inj SYRINge IV PRN ×2 (15:00)
[2025-06-20] MEDS ORDERED: magnesium sulf-water 2g/50mL 50 ML IV PRN (15:00)
[2025-06-20] MEDS ORDERED: ondansetron/PF 4mg/2ml inj IV PRN (15:00)
[2025-06-20] MEDS ORDERED: magnesium Cl slow-release 64mg tablet PO PRN (15:00)
[2025-06-20] MEDS ORDERED: mag hydrox/Alum hydrox/simeth 30ml oral suspension PO PRN (15:00)
[2025-06-20] MEDS ORDERED: magnesium hydroxide 30ml (MOM) UD suspension PO PRN (15:00)
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
[2025-06-20 17:00] VITALS: BP 139/76; PULSE 76; RESP 18; TEMP 97.8; O2SAT 99
--- NOTE | 2025-06-20 17:03 | RADIOLOGY REPORT ---
EXAM: US ULTRASOUND OF ABDOMEN HISTORY: Cholecystitis COMPARISON: CT CT ABDOMEN PELVIS W/ IV CONTRAST on DOS: 06/20/25 TECHNIQUE: Real-time grayscale and color flow images of the abdomen were obtained. FINDINGS: LIVER: Liver measures 16.6 cm craniocaudal. Liver parenchyma is homogeneous in echotexture. No focal lesion is identified. No intrahepatic ductal dilatation. Normal directional flow is seen in the portal vein. GALLBLADDER: The gallbladder is distended with wall thickening measuring up to 4 mm. No sludge or stones. COMMON BILE DUCT: 0.5 cm in caliber. PANCREAS: Visualized portions are unremarkable. KIDNEYS: The right kidney measures 11. cm in length. No evidence of hydronephrosis. AORTA, IVC: Visualized portions are unremarkable. OTHER: None. IMPRESSION: Dilated gallbladder with wall thickening without stones or sludge. Correlate clinically with acalculous cholecystitis.
[2025-06-20 18:00] VITALS: BP 139/76; PULSE 76; RESP 14; TEMP 97.6; O2SAT 99
[2025-06-20] MEDS: CefTRIAXone 2gm/D5W 50ml BAG 50 ML IV SCH (18:00)
[2025-06-20] MEDS: normal saline 1000ml 1,000 ML IV ONE (18:00)
[2025-06-20 18:11] LABS: URINE AMPHETAMINE SCREEN NEGATIVE (Neg); URINE BARBITUATE SCREEN NEGATIVE (Neg); URINE BENZODIAZEPINES SCREEN NEGATIVE (Neg); URINE CANNABINOID SCREEN POSITIVE (Neg); URINE COCAINE SCREEN NEGATIVE (Neg); URINE METHADONE SCREEN NEGATIVE (Neg); URINE OPIATE SCREEN NEGATIVE (Neg); URINE PHENCYCLIDINE SCREEN NEGATIVE (Neg)
[2025-06-20] MEDS: K and/or MAG REPLACEMENT MC SCH (19:05)
[2025-06-20] MEDS: metroNIDAZOLE-Flagyl 500mg/NS 100 ML IV SCH (19:32)
[2025-06-20 20:00] VITALS: RESP 14; O2SAT 99
[2025-06-20] MEDS ORDERED: docusate sod 100mg capsule PO SCH (20:00)
[2025-06-20] MEDS ORDERED: enoxaparin 40mg/0.4ml syringe SQ SCH (20:00)
[2025-06-20 22:00] VITALS: BP 11/62; PULSE 72; RESP 18; TEMP 97.7; O2SAT 96
[2025-06-21] VITALS (8 sets, daily range): BP systolic 115–139; BP diastolic 72–79; PULSE 74–97; RESP 18–22; TEMP 97.2–98.7; O2SAT 93–98
[2025-06-21 03:50] LABS: MEAN PLATELET VOLUME 8.2 FL (7.4-10.4); RED CELL DISTRIBUTION WIDTH 13.5 % (11.5-14.5)
[2025-06-21 04:07] LABS: CREATININE 0.88 MG/DL (0.60-1.10); TOTAL CARBON DIOXIDE 27.7 MMOL/L (24-32); eCRCL 77 ML/MIN; eGFR 84 ML/MIN
[2025-06-21] MEDS ORDERED: HALLS - SOOTHE MENTHOL 1.8 MG cough drop LOZENGE MM PRN (04:20)
[2025-06-21] MEDS: ESCITALOPRAM 10 mg tablet 10 MG TABLET PO SCH (07:54)
[2025-06-21] MEDS: docusate sod 100mg capsule PO SCH (07:54)
--- NOTE | 2025-06-21 09:22 | RADIOLOGY REPORT ---
CLINICAL HISTORY: ALOC TECHNIQUE: Helical scanning was performed of the head from the skull base to the vertex. Multiplanar reconstructions were performed. This exam was performed according to our departmental dose optimization program. Up-to-date CT equipment and radiation dose reduction techniques are utilized as appropriate. CTDI 63 DLP 1241 COMPARISON: None FINDINGS: There is no evidence for acute intracranial hemorrhage, acute ischemic changes, mass, mass effect, or extra-axial fluid collection. There is no hydrocephalus or midline shift. There is no effacement of the cerebral sulci and basal subarachnoid cisterns. The beauchamp-white matter differentiation is well maintained. There is mild brain volume loss and minimal chronic small vessel ischemic change. There has been bilateral cataract extraction The imaged paranasal sinuses are clear. IMPRESSION: NO ACUTE INTRACRANIAL ABNORMALITY SEEN.
[2025-06-21] MEDS: azithromycin/NS 500mg/250ml 250 ML IV SCH (10:16)
[2025-06-21 11:58] LABS: LEUKOCYTE ESTERASE ,URINE NEGATIVE (Neg); NITRITES, URINE NEGATIVE (Neg); OCCULT BLOOD,URINE TRACE-INTACT (Neg)
[2025-06-21 12:06] LABS: UA COLLECTION TYPE NON-SPECIFIED
[2025-06-21 12:08] LABS: MUCUS STRANDS NONE SEEN /LPF (Neg); SQUAMOUS EPITHELIAL CELL,UR NONE SEEN /LPF (FEW)
--- NOTE | 2025-06-21 14:19 | PROGRESS NOTE- Residence ---
Progress Note - Resident Providers to CC Resident Creating Document: AL ROTHMANTIKJANENE ~ Antibiotic Timeout Antibiotic Ordered?: Yes Subjective Patient seen and examined at the bedside today. He is very pleasant but is not oriented to time place or person. Has significant memory deficits. No overnight events were reported. Denied any concerns, any pain, chest pain, abdominal pain, shortness breath, headaches, nausea, vomiting Objective Vital Signs Date Time Temp Pulse Resp B/P (MAP) Pulse Ox O2 Delivery O2 Flow Rate FiO2 06/21/25 07:55 76 06/21/25 02:00 97.6 19 123/79 (94) 97 Room Air 06/20/25 16:06 0 06/20/25 12:05 21 Result Diagram: 06/21/25 03306/21/25336 General: Pleasant elderly male, not oriented to time place or person. HEENT: No pallor present, no icterus, moist mucous membranes Neck: No masses and tenderness Resp: Unlabored. Lungs clear to auscultation bilaterally. Chest: Normal expansion Cardiovascular: Regular Rate and rhythm, normal S1 and S2 without murmur, rub or gallop Abdomen: Soft and nontender, no organomegaly, no guarding and rigidity, bowel sounds present Neuro: No focal weakness in the upper and lower limb muscles, power of the muscles 5/5 bilateral upper and lower extremities, normal reflexes bilaterally. Cranial nerves intact Extremities: No cyanosis,clubbing or edema Skin: Warm and Dry. No lesions Psych: Normal affect, cooperative with care Assessment Assessment 75-year-old male with past medical history of advanced dementia, atrial fibrillation, TIA, PTSD, hypertension is admitted in the hospital for evaluation and management of worsening altered level of consciousness possibly secondary to metabolic encephalopathy. Plan Plan Altered level of consciousness Secondary to metabolic encephalopathy Most likely secondary to aspirational pneumonia CT head-negative for any acute intracranial abnormalities. NPO until bedside swallow eval. Patient is put under aspiration precautions. The patient's WBC count, lactic acid and procalcitonin are within normal limits. Urine analysis-negative for any underlying urinary tract infection. Urine tox positive for cannabinoids. Vitals are stable. The patient is comfortable on room air at the moment. Started a broad-spectrum IV antibiotics-IV ceftriaxone, IV azithromycin and IV metronidazole. Continue close monitoring. Questionable acalculous cholecystitis CT scan of the abdomen/pelvis shows mildly distended gallbladder with thickened appearing gallbladder raising suspicion for acute cholecystitis. Recommend follow up study with the ultrasound. Ultrasound of the abdomen showed dilated has been with wall thickening without stones or sludge. The patient is not in any acute abdominal pain. Deep palpation of the abdomen is nontender and soft. The patient does not have elevated WBC count, fevers, chills, protocol or lactic acid. Restarted broad-spectrum IV antibiotics. Continue close monitoring. Deescalate antibiotics if the patient is stable. Troponinemia NSTEMI versus Troponinemia Patient is not reliable historian. Has a advanced dementia. Echocardiography shows left ventricular ejection fraction of 60% with RVSP of 53 mmHg. Severely dilated left atrium is reported with a moderate mitral regurgitation. EKG is negative for any acute ST segment changes. The on-call lowerator operator Dr. Johnston was consulted in view of the patient's significantly elevated troponins. Per Dr. Johnston in view of the patient's all other comorbidities and severe/advanced dementia he is not a candidate for cardiac catheterization. Per Dr. Johnston he would not do a cardiac catheterization on this patient. He recommended starting the patient on aspirin and Plavix. Continue home Pradaxa 150 mg p.o. b.i.d. Advanced dementia The patient has advanced dementia. The patient's reported that they has been having difficulty taking care of the patient at home. Patient will require drug abuse social worker and counseling case manager consultation. We will require placement in post acute care versus long-term assisted living facility. Atrial fibrillation, rate controlled Continue metoprolol tartrate 25 mg b.i.d. Continue Pradaxa 150 mg b.i.d. History of TIA Severe dementia PTSD No focal motor or sensory deficits. CT head negative for any acute intracranial abnormalities. Continue baby aspirin, Pradaxa. Starting him on Plavix as per Cardiology recommendation. Continue home quetiapine, citalopram and clonazepam. CODE STATUS: DNR DVT prophylaxis: Pradaxa GI prophylaxis: None Diet: Heart healthy diet Disposition: Continue medical management. Request drug abuse social worker consultation and possible discharge to a long-term assisted living facility in view of his severe and advanced dementia. Case seen and discussed with the attending physician Dr. De Paz. Al Rothman MD Internal Medicine Resident, PGY-3 Date of Service: Jun 21, 2025 Billing Provider: IRINA DE PAZ MD Common Visit Codes: [id number] INP/OBS CARE(HIGH) AL ROTHMAN, RES Jun 21, 2025 14:19 IRINA DE PAZ MD Jun 25, 2025 16:05
[2025-06-21] MEDS ORDERED: clopidogrel 300mg tablet PO ONE (17:00)
--- NOTE | 2025-06-21 19:43 | CARDIOLOGY REPORT ---
APPROVED REPORT EXAM: Comprehensive 2D, Doppler, and color-flow Echocardiogram. Patient Location: [facility] Blood Pressure: 137/76 mmHg Heart Rate: 80's bpm Rhythm: Atrial Fibrillation Indications CHF Troponin 1283 ALOC No stereo compiler No previous echo 2D Dimensions LA Diam 6.5 cm IVSd 1.4 (0.7-1.1cm) LVDd 5.5 cm PWd 1.4 (0.7-1.1cm) IVSs 1.8 (0.8-1.2cm) LVDs 3.8 (2.5-4.0cm) Aortic Root(2D) 3.4 cm PWs 1.9 (0.8-1.2cm) LVOT Diameter 2.39 (1.8-2.4cm) LVEF(%) 57.3 (>50%) Ao Asc Diam. 3.36 cm IVC 24.47 mm FS (%) 30.5 % SV 85.7 ml CO 7.2 L/min M-Mode Dimensions MV EPSS 0.7 (<0.5cm) Aortic Valve AoV Peak Reynaldo. 125.5 cm/s AoV VTI 25.8 cm AO Peak GR. 6.3 mmHg AO Mean GR. 3 mmHg LVOT VTI 21.36 cm LVOT Peak Reynaldo. 98.5 cm/s EMILIO(VTI)/BSA 3.73 cm2/m2 EMILIO (VTI) 3.73 cm2 AV DI 0.83 % Mitral Valve MV E Velocity 126.0 cm/s MV Peak Gr. 10 mmHg MV DECEL TIME 144 ms MV PHT 44 ms MVA (PHT) 5.00 cm2 MV VMax 155.4 cm/s Tricuspid Valve TR P. Velocity 310 cm/s RAP ESTIMATE 15 mmHg TR Peak Gr. 38 mmHg RVSP 53 mmHg LEFT VENTRICLE LV is normal in size with moderate concentric hypertrophy. Overall systolic function appears normal. Overall LVEF is 60%. RIGHT VENTRICLE RV appears mildly dilated with normal contractility. RVSP is estimated at 53 mmHG. ATRIA Left atrium is severely dilated. AORTIC VALVE Trileaflet AV appears sclerotic without stenosis. No insufficiency by color and spectral flow Doppler. MITRAL VALVE MV is thickened with mild annular calcification and no stenosis. Moderate mitral regurgitation. TRICUSPID VALVE The tricuspid valve is normal in structure. Trace tricuspid regurgitation. PULMONIC VALVE The pulmonary valve is normal in structure. Trace pulmonic insufficiency. GREAT VESSELS The aortic root is normal in size. The ascending aorta is normal in size. IVC is dilated and collapses less than 50% with inspiration. PERICARDIUM Tiny pericardial effusion near right atrial size Other Information Study Quality: Adequate Conclusion Overall LVEF is 60%. LV is normal in size with moderate concentric hypertrophy. Overall systolic function appears normal. RV appears mildly dilated with normal contractility. RVSP is estimated at 53 mmHG. Trileaflet AV appears sclerotic without stenosis. No insufficiency by color and spectral flow Doppler. [id number] biatrial enlargement present. Moderate mitral regurgitation. Trace tricuspid regurgitation. Trivial pericardial effusion near the right atrial side
[2025-06-22] VITALS (7 sets, daily range): BP systolic 112–127; BP diastolic 65–75; PULSE 60–80; RESP 16–22; TEMP 97.2–98.5; O2SAT 90–98
[2025-06-22 06:44] LABS: MEAN PLATELET VOLUME 8.3 FL (7.4-10.4); RED CELL DISTRIBUTION WIDTH 13.5 % (11.5-14.5)
[2025-06-22 07:33] LABS: CREATININE 0.91 MG/DL (0.60-1.10); TOTAL CARBON DIOXIDE 25.6 MMOL/L (24-32); eCRCL 75 ML/MIN; eGFR 81 ML/MIN
--- NOTE | 2025-06-22 12:27 | PROGRESS NOTE- Residence ---
Progress Note - Resident Providers to CC Resident Creating Document: ISIDRA LANG CC: IRINA ADLER MD ~ Antibiotic Timeout Antibiotic Ordered?: Yes Subjective Patient seen and examined at the bedside today. Patient was very somnolent this morning, per sitter, patient was awake most of the night and trying to get out of bed. Per nurse, patient had a BM yesterday. Objective Vital Signs Date Time Temp Pulse Resp B/P (MAP) Pulse Ox O2 Delivery O2 Flow Rate FiO2 06/22/25 07:41 75 06/22/25 03:31 15 06/21/25 22:00 98.1 120/77 (91) 96 Room Air 06/20/25 16:06 0 06/20/25 12:05 21 Result Diagram: 06/22/2560506/22/25605 General: Pleasant elderly male, not oriented to time place or person. HEENT: No pallor present, no icterus, moist mucous membranes Neck: No masses and tenderness Resp: Unlabored. Lungs clear to auscultation bilaterally. Chest: Normal expansion Cardiovascular: Regular Rate and rhythm, normal S1 and S2 without murmur, rub or gallop Abdomen: Soft and nontender, no organomegaly, no guarding and rigidity, bowel sounds present Neuro: No focal weakness in the upper and lower limb muscles, power of the muscles 5/5 bilateral upper and lower extremities, normal reflexes bilaterally. Cranial nerves intact Extremities: No cyanosis,clubbing or edema Skin: Warm and Dry. No lesions Psych: Normal affect, cooperative with care Assessment Assessment 75-year-old male with past medical history of advanced dementia, atrial fibrillation, TIA, PTSD, hypertension is admitted in the hospital for evaluation and management of worsening altered level of consciousness possibly secondary to metabolic encephalopathy. Plan Plan Altered level of consciousness Secondary to metabolic encephalopathy Most likely secondary to aspirational pneumonia CT head-negative for any acute intracranial abnormalities. NPO until bedside swallow eval. Patient is put under aspiration precautions. The patient's WBC count, lactic acid and procalcitonin are within normal limits. Urine analysis-negative for any underlying urinary tract infection. Urine tox positive for cannabinoids. Vitals are stable. The patient is comfortable on room air at the moment. Continue IV antibiotics-IV ceftriaxone, IV azithromycin and IV metronidazole. Last dose of azithromycin today Continue close monitoring. Questionable acalculous cholecystitis CT scan of the abdomen/pelvis shows mildly distended gallbladder with thickened appearing gallbladder raising suspicion for acute cholecystitis. Recommend follow up study with the ultrasound. Ultrasound of the abdomen showed dilated has been with wall thickening without stones or sludge. The patient is not in any acute abdominal pain. Deep palpation of the abdomen is nontender and soft. The patient does not have elevated WBC count, fevers, chills, protocol or lactic acid. Restarted broad-spectrum IV antibiotics. Continue close monitoring. Will Deescalate antibiotics if the patient is stable. Troponinemia NSTEMI versus Troponinemia Patient is not reliable historian. Has a advanced dementia. Echocardiography shows left ventricular ejection fraction of 60% with RVSP of 53 mmHg. Severely dilated left atrium is reported with a moderate mitral regurgitation. EKG is negative for any acute ST segment changes. The on-call para educator Dr. Johnston was consulted in view of the patient's significantly elevated troponins. Per Dr. Johnston in view of the patient's all other comorbidities and severe/advanced dementia he is not a candidate for cardiac catheterization. Per Dr. Johnston he would not do a cardiac catheterization on this patient. He recommended starting the patient on aspirin and Plavix. Continue home Pradaxa 150 mg p.o. b.i.d. Advanced dementia The patient has advanced dementia. The patient's reported that they has been having difficulty taking care of the patient at home. Patient will require community mental health social worker and case therapist consultation. We will require placement in post acute care versus long-term assisted living facility. Atrial fibrillation, rate controlled Continue metoprolol tartrate 25 mg b.i.d. Continue Pradaxa 150 mg b.i.d. History of TIA Severe dementia PTSD No focal motor or sensory deficits. CT head negative for any acute intracranial abnormalities. Continue baby aspirin, Pradaxa. Starting him on Plavix as per Cardiology recommendation. Continue home quetiapine, citalopram and clonazepam. CODE STATUS: DNR DVT prophylaxis: Pradaxa GI prophylaxis: None Diet: Heart healthy diet Disposition: Continue medical management. Request community mental health social worker consultation and possible discharge to a long-term assisted living facility in view of his severe and advanced dementia. Patient has been discussed in detail with senior resident (PGY-3), as well as attending physician, Dr Zandra Mari MD Internal Medicine Resident PGY-2 Date of Service: Jun 22, 2025 Billing Provider: IRINA ADLER MD Common Visit Codes: [id number] INP/OBS CARE(HIGH) ISIDRA LANG Jun 22, 2025 12:27 IRINA ADLER MD Jun 25, 2025 16:05
[2025-06-22] MEDS: PERFLUTREN PROTEIN-A MICROSPHR (Optison) 0.22 MG/ML 3ML VIAL IV ONE (19:48)
[2025-06-23] VITALS (8 sets, daily range): BP systolic 115–127; BP diastolic 62–81; PULSE 67–83; RESP 14–23; TEMP 97.2–98.8; O2SAT 95–97
[2025-06-23 07:06] LABS: MEAN PLATELET VOLUME 8.5 FL (7.4-10.4); RED CELL DISTRIBUTION WIDTH 13.4 % (11.5-14.5)
[2025-06-23 07:28] LABS: CREATININE 0.88 MG/DL (0.60-1.10); TOTAL CARBON DIOXIDE 24.7 MMOL/L (24-32); eCRCL 77 ML/MIN; eGFR 84 ML/MIN
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
--- NOTE | 2025-06-23 19:03 | PROGRESS NOTE- Residence ---
Progress Note - Resident Providers to CC Resident Creating Document: ISIDRA LANG CC: IRINA ADLER MD ~ Antibiotic Timeout Antibiotic Ordered?: Yes Subjective Patient seen and examined at the bedside today. Patient was sleeping but woke up and talked to me. He is still very confused at baseline. He does remember his 's name and his own. He denied any chest pain, palpitations or any other symptoms Objective Vital Signs Date Time Temp Pulse Resp B/P (MAP) Pulse Ox O2 Delivery O2 Flow Rate FiO2 06/23/25 15:00 98.8 70 18 123/76 (92) 97 Room Air 06/23/25 08:00 0.0 21 Result Diagram: 06/23/2563006/23/25630 General: Pleasant elderly male, not oriented to time place or person. HEENT: No pallor present, no icterus, moist mucous membranes Neck: No masses and tenderness Resp: Unlabored. Lungs clear to auscultation bilaterally. Chest: Normal expansion Cardiovascular: Regular Rate and rhythm, normal S1 and S2 without murmur, rub or gallop Abdomen: Soft and nontender, no organomegaly, no guarding and rigidity, bowel sounds present Neuro: No focal weakness in the upper and lower limb muscles, power of the muscles 5/5 bilateral upper and lower extremities, normal reflexes bilaterally. Cranial nerves intact Extremities: No cyanosis,clubbing or edema Skin: Warm and Dry. No lesions Psych: Normal affect, cooperative with care Assessment Assessment 75-year-old male with past medical history of advanced dementia, atrial fibrillation, TIA, PTSD, hypertension is admitted in the hospital for evaluation and management of worsening altered level of consciousness possibly secondary to metabolic encephalopathy. Plan Plan Altered level of consciousness Secondary to metabolic encephalopathy Suspected aspiration pneumonia, covering from Gram-positive, Gram-negative than atypicals CT head-negative for any acute intracranial abnormalities Patient is put under aspiration precautions White count has remained normal Urine analysis-negative for any underlying urinary tract infection Urine tox positive for cannabinoids. Vitals are stable The patient is comfortable on room air at the moment. Completed azithromycin Will continue Rocephin and metronidazole for 1 more day to complete 5 days Continue close monitoring Questionable acalculous cholecystitis CT scan of the abdomen/pelvis shows mildly distended gallbladder with thickened appearing gallbladder raising suspicion for acute cholecystitis. Recommend follow up study with the ultrasound. Ultrasound of the abdomen showed dilated has been with wall thickening without stones or sludge. The patient is not in any acute abdominal pain. Deep palpation of the abdomen is nontender and soft. The patient does not have elevated WBC count, fevers, chills, procalcitonin or lactic acid. Antibiotics as above Continue close monitoring. Will Deescalate antibiotics if the patient is stable. Troponinemia , NSTEMI versus type 2 [place] Patient is not reliable historian. Has a advanced dementia. Echocardiography shows left ventricular ejection fraction of 60% with RVSP of 53 mmHg. Severely dilated left atrium is reported with a moderate mitral regurgitation. EKG is negative for any acute ST segment changes. The on-call dialysis rn Dr. Johnston was consulted in view of the patient's significantly elevated troponins. Per Dr. Johnston in view of the patient's all other comorbidities and severe/advanced dementia he is not a candidate for cardiac catheterization. Per Dr. Johnston he would not do a cardiac catheterization on this patient. He verbally recommended starting the patient on aspirin and Plavix. Continue home Pradaxa [address] Hinkle consulted today. Appreciate recommendations Advanced dementia The patient has advanced dementia. The patient's reported that they has been having difficulty taking care of the patient at home. Patient will require social media strategist and case filler consultation. We will require placement in post acute care versus long-term assisted living facility. Atrial fibrillation, rate controlled Continue metoprolol tartrate 25 mg b.i.d. Continue Pradaxa 150 mg b.i.d. History of TIA Severe dementia PTSD No focal motor or sensory deficits. CT head negative for any acute intracranial abnormalities. Continue baby aspirin, Pradaxa. Starting him on Plavix as per Cardiology recommendation. Continue home quetiapine, citalopram and clonazepam. CODE STATUS: DNR DVT prophylaxis: Pradaxa GI prophylaxis: None Diet: Heart healthy diet Disposition: Continue medical management. Request social media strategist consultation and possible discharge to a long-term assisted living facility in view of his severe and advanced dementia. Patient has been discussed in detail with senior resident (PGY-3), as well as attending physician, Dr Zandra Mari MD Internal Medicine Resident PGY-2 Date of Service: Jun 23, 2025 Billing Provider: IRNIA ADLER MD Common Visit Codes: [id number] INP/OBS CARE(HIGH) ISIDRA LANG Jun 23, 2025 19:03 IRINA ADLER MD Jun 25, 2025 16:05
[2025-06-24 02:00] VITALS: BP 101/52; PULSE 63; RESP 13; TEMP 97.4; O2SAT 96
[2025-06-24 06:00] VITALS: BP 130/73; PULSE 73; RESP 18; TEMP 98.2; O2SAT 97
[2025-06-24 06:34] LABS: MEAN PLATELET VOLUME 8.6 FL (7.4-10.4); RED CELL DISTRIBUTION WIDTH 13.2 % (11.5-14.5)
[2025-06-24 07:06] LABS: EOSINOPHILS % (MANUAL) 4.0 % (0-6); METAMYLEOCYTES% (MANUAL) 1.0 % (0-0); MONOCYTES % (MANUAL) 16.0 % (2-12)
[2025-06-24 07:08] LABS: LYMPHOCYTES % (MANUAL) 14.0 % (21-51); NEUTROPHILS % (MANUAL) 65.0 % (42-75); PLATELET ESTIMATE DECREASED
[2025-06-24 07:24] LABS: CHOL/HDL RATIO 1.8 (0.00-4.99); CREATININE 0.86 MG/DL (0.60-1.10); LDL CHOLESTEROL 37 MG/DL (50-100); TOTAL CARBON DIOXIDE 26.6 MMOL/L (24-32); eCRCL 79 ML/MIN; eGFR 86 ML/MIN
[2025-06-24 08:00] VITALS: RESP 18; O2SAT 97
--- NOTE | 2025-06-24 10:43 | DISCHARGE SUMMARY-Residence ---
Discharge Summary Providers to CC Resident Creating Document: RASHAD LOZANOISIDRA AREVALO CC: IRINA ADLER MD ~ Discharge Summary Admission Diagnosis: NSTEMI Hospital Course DATE OF ADMISSION: 06/20/2025 DATE OF DISCHARGE: 06/24/2025 Discharge Diagnosis\\Comment: Altered level of consciousness Metabolic encephalopathy 2/2 PNA in the setting of advanced dementia Suspected aspiration pneumonia, covering from Gram-positive, Gram-negative than atypicals Questionable acalculous cholecystitis Troponinemia , NSTEMI versus type 2 [place] Advanced dementia Atrial fibrillation, rate controlled History of TIA Operations\\Procedures: None Consultants: Dr Hinkle, cardiology Complications: None Condition on DC: Stable for transfer Discharge Summary: Patient was admitted with the following HPI: Patient is a 75-year-old male with history of severe dementia, atrial fibrillation, TIA, PTSD and hypertension who was brought to the ED by EMS due to altered level consciousness. Reportedly, patient was found poorly responsive today by caregiver, who stated to ED physician that he was only arousable to pain stimulus. When talking to his she reported that patient is severely forgetful at baseline, and that he does have episodes of unresponsiveness which she attributes to his dementia. She says that lately patient has been very difficult to take care of at home. He [facility], who apparently recommended her to bring patient to the ER due to significant abdominal swelling and "fluid retention". The patient himself denies any symptoms including chest pain, palpitation, abdominal pain, headache, nausea, vomiting, fevers, chills or any other subjective symptoms. Hospital course: Patient was admitted with diagnosis of altered level of consciousness, suspected aspiration pneumonia, questionable acalculous cholecystitis and troponinemia. Patient was started on empiric IV antibiotics, fluids and tele monitoring. Troponins were trended and Cardiology was consulted. Troponins remained stable without significant up trend, and Cardiology spoke with patient's who expressed wishes of not performing any further intervention of the patient. Therefore patient was started on medical management for CAD/ACS with addition of Plavix on top of aspirin and Pradaxa which patient was already taking. Patient otherwise remained asymptomatic and hemodynamically stable during rest of hospital course. Patient's was able to set up along term care facility for him and plan is to transfer patient today. Imaging: Head CT: No acute intracranial abnormalities Abdominal ultrasound: Dilated gallbladder with wall thickening without stones or sludge. Correlate clinically with acalculous cholecystitis. Echocardiogram: Overall LVEF is 60%. LV is normal in size with moderate concentric hypertrophy. Overall systolic function appears normal. RV appears mildly dilated with normal contractility. RVSP is estimated at 53 mmHG. Trileaflet AV appears sclerotic without stenosis. No insufficiency by color and spectral flow Doppler. [id number] biatrial enlargement present. Moderate mitral regurgitation. Trace tricuspid regurgitation. Trivial pericardial effusion near the right atrial side Abdomen/pelvis CT: 1. Mildly distended gallbladder with thickened appearing gallbladder wall and mild adjacent stranding. Acute cholecystitis can not be excluded, although no calcified gallstones are visualized. Ultrasound could be obtained to further evaluate if clinically indicated. 2. Peripherally calcified mass in the left hemiabdomen adjacent to loops of small bowel and abutting the left transversus abdominis muscle measuring up to 4.1 cm. 3. Nonspecific nondilated fluid-filled small bowel loops. Findings may be seen with ileus or enteritis in the appropriate clinical setting. No small bowel obstruction. 4. Small pericardial effusion. There is moderate cardiomegaly. Ovoid mass measuring up to 3.1 cm abutting the anterior wall of the right atrium. Differential considerations would include an abnormal appearing pericardial lymph node, other mass associated with the right atrial wall, or possible focal aneurysm/diverticulum of the right atrium. Correlate with clinical findings. Echocardiogram may be helpful to further characterize. 5. Small right pleural fluid collection with overlying atelectasis and consolidation. Rounded area of consolidation in the right lower lobe with associated calcifications and some fat density, may be sequelae of infectious or inflammatory etiology, or aspiration. 6. Moderate-sized fat containing left inguinal hernia. Chest x-ray: 1. Cardiomegaly with irregular opacities in the mid to lower lungs which may be due to CHF, Scarring, or mild pneumonia. Comparison with previous chest imaging would be helpful to make this distinction. 2. Postoperative changes of ACDF and right clavicle resection. Laboratory Tests Test 06/23/25 06:31 06/24/25 05:44 06/24/25 05:54 White Blood Count 5.6 X10'3 4.6 X10'3 Red Blood Count 3.43 X10'6 3.33 X10'6 Hemoglobin 10.8 g/dl 10.5 g/dl Hematocrit 32.3 % 31.0 % Mean Corpuscular Volume 94.2 FL 93.2 FL Mean Corpuscular Hemoglobin 31.5 PG 31.6 PG Mean Corpuscular Hemoglobin Concent 33.4 g/dL 33.9 g/dL Red Cell Distribution Width 13.4 % 13.2 % Platelet Count 136 X10'3 137 X10'3 Mean Platelet Volume 8.5 FL 8.6 FL Neutrophils (%) (Auto) 69.4 % 63.6 % Lymphocytes (%) (Auto) 13.9 % 16.6 % Monocytes (%) (Auto) 14.4 % 16.2 % Eosinophils (%) (Auto) 1.5 % 2.3 % Basophils (%) (Auto) 0.8 % 1.3 % Neutrophils # (Auto) 3.9 X10'3 2.9 X10'3 Lymphocytes # (Auto) 0.8 X10'3 0.8 X10'3 Monocytes # (Auto) 0.8 X10'3 0.8 X10'3 Eosinophils # (Auto) 0.1 X10'3 0.1 X10'3 Basophils # (Auto) 0.0 X10'3 0.1 X10'3 CBC Comment Sodium Level 142 MMOL/L 145 MMOL/L Potassium Level 3.7 MMOL/L 3.8 MMOL/L Chloride Level 108 MMOL/L 109 MMOL/L Carbon Dioxide Level 24.7 MMOL/L 26.6 MMOL/L Anion Gap 9 9 Blood Urea Nitrogen 18 MG/DL 18 MG/DL Creatinine 0.88 MG/DL 0.86 MG/DL Estimated GFR/1.73 m2 84 ML/MIN 86 ML/MIN BUN/Creatinine Ratio 20.5 20.9 Glucose Level 90 MG/DL 84 MG/DL Calcium Level 8.3 MG/DL 8.3 MG/DL Magnesium Level 1.9 MG/DL 1.9 MG/DL Total Bilirubin 1.2 MG/DL 1.1 MG/DL Aspartate Amino Transf (AST/SGOT) 23 U/L 23 U/L Alanine Aminotransferase (ALT/SGPT) 15 U/L 14 U/L Alkaline Phosphatase 96 IU/L 92 IU/L Total Protein 6.5 G/DL 6.4 G/DL Albumin 3.3 G/DL 3.3 G/DL Globulin 3.2 G/DL 3.1 G/DL Albumin/Globulin Ratio 1.0 1.1 Chemistry Comments Differential Total Cells Counted 100 Neutrophils % (Manual) 65.0 % Lymphocytes % (Manual) 14.0 % Monocytes % (Manual) 16.0 % Eosinophils % (Manual) 4.0 % Metamyelocytes % 1.0 % Platelet Estimate Decreased Red Blood Cell Morphology Normal Basophilic Stippling Triglycerides Level 28 MG/DL Cholesterol Level 98 MG/DL LDL Cholesterol 37 MG/DL HDL Cholesterol 54 MG/DL Cholesterol/HDL Ratio 1.8 Discharge physical exam: Vital Signs Date Time Temp Pulse Resp B/P (MAP) Pulse Ox O2 Delivery O2 Flow Rate FiO2 06/24/25 07:52 73 06/24/25 02:00 97.4 13 101/52 (68) 96 Room Air 06/23/25 08:00 0.0 21 General: Pleasant elderly male, not oriented to time place or person. HEENT: No pallor present, no icterus, moist mucous membranes Neck: No masses and tenderness Resp: Unlabored. Lungs clear to auscultation bilaterally. Chest: Normal expansion Cardiovascular: Regular Rate and rhythm, normal S1 and S2 without murmur, rub or gallop Abdomen: Soft and nontender, no organomegaly, no guarding and rigidity, bowel sounds present Neuro: No focal weakness in the upper and lower limb muscles, power of the muscles 5/5 bilateral upper and lower extremities, normal reflexes bilaterally. Cranial nerves intact Extremities: No cyanosis,clubbing or edema Skin: Warm and Dry. No lesions Psych: Normal affect, cooperative with care Current Medications Medications (Trade) Dose Ordered Sig/Maxime Route PRN Reason Start Time Stop Time Status Last Admin Dose Admin Aspirin (aspirin 81MG chew tablet) 324 mg ONCE ONCE PO 06/20/25 13:55 06/20/25 14:04 DC 06/20/25 14:20 324 MG Allopurinol (Zyloprim tablet) 300 mg DAILY PO 06/21/25 08:00 06/24/25 07:56 300 MG Dabigatran (Pradaxa capsule) 150 mg Q12H PO 06/20/25 20:00 06/24/25 09:35 150 MG Docusate Sodium (Colace capsule) 100 mg DAILY PO 06/21/25 08:00 06/24/25 07:51 100 MG Furosemide (Lasix tablet) 20 mg DAILY PO 06/21/25 08:00 06/24/25 07:52 20 MG Metoprolol Tartrate (Lopressor tablet) 25 mg Q12H PO 06/20/25 20:00 06/24/25 07:52 25 MG Quetiapine Fumarate (SEROquel tablet) 25 mg BID PO 06/20/25 20:00 06/24/25 07:53 25 MG Aspirin (aspirin 81MG chew tablet) 81 mg DAILY PO 06/21/25 08:00 06/24/25 07:51 81 MG Escitalopram Oxalate (Lexapro 10mg tablet) 20 mg DAILY PO 06/21/25 08:00 06/24/25 07:54 20 MG Ceftriaxone Sodium/Dextrose 50 ml @ 100 mls/hr DAILY IV 06/20/25 17:20 06/24/25 07:56 100 MLS/HR Metronidazole/ Sodium Chloride 100 ml @ 100 mls/hr Q12H IV 06/20/25 20:00 06/24/25 09:35 100 MLS/HR Azithromycin 250 ml @ 250 mls/hr Q24H IV 06/21/25 08:00 06/22/25 20:00 DC 06/22/25 09:11 250 MLS/HR Sodium Chloride 1,000 ml @ 1,000 mls/hr ONCE ONCE IV 06/20/25 17:35 06/20/25 18:34 DC 06/20/25 18:00 1,000 MLS/HR Clopidogrel Bisulfate (Plavix tablet) 75 mg DAILY PO 06/22/25 08:00 06/24/25 07:52 75 MG Clopidogrel Bisulfate (Plavix tablet) 300 mg ONCE ONCE PO 06/21/25 17:10 06/21/25 17:11 DC 06/21/25 17:26 300 MG Clonazepam (klonoPIN 0.5mg tablet) 0.5 mg DAILY PO 06/22/25 08:00 06/24/25 07:53 0.5 MG Lorazepam (Ativan tablet) 0.5 mg ONCE ONCE PO 06/22/25 02:40 06/22/25 02:54 DC 06/22/25 03:01 0.5 MG Atorvastatin Calcium (Lipitor tablet) 20 mg HS PO 06/23/25 21:00 06/23/25 20:59 20 MG Disposition: Patient will be transferred for [place] assisted living facility today *Problems/Diagnosis: (1) NSTEMI (non-ST elevated myocardial infarction) Status: Acute (2) Gravely disabled Status: Acute Total Time Spent on D/C: > 30 Minutes Date of Service: Jun 24, 2025 Billing Provider: IRINA ADLER MD Common Visit Codes: 20632-KCF/OBS DISCH DAY >30min RASHAD LOZANOISIDRA LUIS Jun 24, 2025 10:42 IRINA ADLER MD Jun 25, 2025 16:05
[2025-06-24 11:00] VITALS: BP 133/76; PULSE 64; RESP 18; TEMP 98.2; O2SAT 92
[2025-06-24 15:00] VITALS: BP 138/76; PULSE 65; RESP 17; TEMP 97.2; O2SAT 92
== END 2025-06-24 17:15 | DRG 280 ==
LOC: ER 11:49 → ED HOLD 15:07 → PCU 3S 16:37
PROVIDERS: ADMIT Family Medicine; ATTEND Family Medicine
PROC: BW211ZZ Computerized Tomography (CT Scan) of Abdomen and Pelvis using Low Osmolar Contrast (ICD-10-PCS; principal; 2025-06-20)
DX: I21.4 Non-ST elevation (NSTEMI) myocardial infarction (principal); G93.41 Metabolic encephalopathy; J69.0 Pneumonitis due to inhalation of food and vomit; J15.69 Pneumonia due to other Gram-negative bacteria; J15.9 Unspecified bacterial pneumonia; I45.2 Bifascicular block; K81.9 Cholecystitis, unspecified; I48.91 Unspecified atrial fibrillation; F03.C0 Unspecified dementia, severe, without behavioral disturbance, psychotic disturbance, mood disturbance, and anxiety; I10 Essential (primary) hypertension; I34.0 Nonrheumatic mitral (valve) insufficiency; Z66 Do not resuscitate; F43.10 Post-traumatic stress disorder, unspecified; Z88.1 Allergy status to other antibiotic agents
CPT/HCPCS: 36415; 70450; 71045; 74177; 76700; 80048; 80053; 80061; 80305; 80320; 81001; 82550; 83605; 83690; 83735; 83880; 84145; 84484; 85007; 85025; 86140; 87040; 87081; 92508; 92616; 93005; 93306; 97110; 97116; 97162; 99285; A6258; G0378; J0456; J0696; J3490; J7030; J7040; Q9967